=== PATIENT | male | born 1955 | race Hispanic/Latino ===

== ENCOUNTER → 2020-02-15 | Outpatient (CLI) | payer BC | END | disposition home or self-care (01) | LOC: RAH 11:48 | PROVIDERS: ATTEND Internal Medicine | DX: Z01.818 Encounter for other preprocedural examination (principal); I70.0 Atherosclerosis of aorta ==

== ENCOUNTER 2020-04-25 10:20 | Day surgery (SDC) | payer BC ==
[2020-04-19 12:24] LABS: BASOPHILS % (AUTO) 0.8 % (0.0-5.0); EOSINOPHILS % (AUTO) 2.8 % (0.0-8.0); HEMATOCRIT 39.4 % (42-54); LYMPHOCYTES % (AUTO) 31.1 % (21.0-51.0); MEAN CORPUSCULAR HEMOGLOBIN 31.4 pg (27.0-33.0); MEAN CORPUSCULAR HGB CONC 33.5 g/dL (32.0-36.0); MEAN CORPUSCULAR VOLUME 93.6 fL (79-99); MONOCYTES % (AUTO) 11.2 % (3.0-13.0); NEUTROPHILS % (AUTO) 53.9 % (40.0-77.0); PLATELET COUNT (AUTO) 226 K/uL (130-400); RED BLOOD CELL COUNT(AUTO) 4.21 MIL/uL (4.50-6.20); RED CELL DISTRIBUTION WIDTH 12.3 % (11.0-15.5); WHITE BLOOD COUNT (AUTO) 4.7 K/uL (4.8-10.8)
[2020-04-19 12:36] LABS: CREATININE 1.1 mg/dL (0.5-1.5); POTASSIUM 4.9 mmol/L (3.5-5.1)
[2020-04-24 10:39] VITALS: BP 127/77
[~2020-04-25] VITALS: Ht 179.1 cm; Wt 106.6 kg
[2020-04-25] VITALS (17 sets, daily range): BP systolic 97–129; BP diastolic 46–74
[2020-04-25] MEDS: CEFAZOLIN SODIUM 1 GM VIAL IVP SCH ×2 (06:00→13:00)
[~2020-04-25 10:20] MED LIST: LACTATED RINGERS 1000ML 1,000 ML IV SCH; LISI2.5T2 PO; METF-444 PO; SIMV10TA97 PO; VENL25TA29 PO
[2020-04-25] MEDS ORDERED: SODIUM CHLORIDE 0.9% 1000ML 1,000 ML IV ONE (10:36)
[2020-04-25] MEDS ORDERED: ONDANSETRON HCL 4 MG/2 ML VIAL ONE (12:19)
[2020-04-25] MEDS ORDERED: LIDOCAINE PF 2% 5ML ABBOJECT ONE (12:19)
[2020-04-25] MEDS ORDERED: MIDAZOLAM HCL 1 MG/ML 2ML VIAL ONE (12:20)
[2020-04-25] MEDS ORDERED: ROCURONIUM 10MG/1ML SYR 10 MG/ML ML ONE (12:20)
[2020-04-25] MEDS ORDERED: FENTANYL CITRATE PF 50 MCG/1 ML 2ML VIAL ONE (12:20)
[2020-04-25] MEDS ORDERED: DEXAMETHASONE SOD PHOSPHATE 10MG/ML 1ML VIAL ONE (12:20)
[2020-04-25] MEDS ORDERED: PROPOFOL 10 MG/ML 20ML VIAL IV ONE (12:20)
[2020-04-25] MEDS ORDERED: ROPIVACAINE 0.5% 5MG/ML 30ML IJ ONE (12:24)
[2020-04-25] MEDS ORDERED: EPHEDRINE SULFATE 50 MG/ML AMPULE ONE (12:41)
[2020-04-25] MEDS ORDERED: GLYCOPYRROLATE 1 MG/5 ML SYRINGE ONE (12:45)
--- NOTE | 2020-04-25 15:20 | NUR ---
patient brought to day patient via stretcher by SOUMYA rodriguez. patient AAOX3, RESPIRATIONS UNLABORED, VITAL SIGNS STABLE. DENIES ANY PAIN AT THIS TIME. DRESSING TO RIGHT SHOULDER IS DRY/INTACT. RIGHT ARM IN SLING. RIGHT HAND NUMB DUE TO BLOCK GIVEN IN OR. VITAL SIGNS STABLE AT THIS TIME.
--- NOTE | 2020-04-25 15:47 | NUR ---
discharge instructions provided to patient's spouse (talya jain) via telephone. follow up appointment provided and handout provided on incision care and dr lombardi post op instructions. all questions/concerns addressed,.
--- NOTE | 2020-04-25 16:00 | NUR ---
PATIENT DISCHARGED FROM FACILITY VIA WHEELCHAIR BY NURSE. PATIENT ASSISTED INTO PRIVATE VEHICLE DRIVEN BY SPOUSE.
== END 2020-04-25 16:00 | disposition home or self-care (01) ==
LOC: DAH 10:20
PROVIDERS: ATTEND Orthopaedic Surgery
DX: M75.121 Complete rotator cuff tear or rupture of right shoulder, not specified as traumatic (principal); M19.011 Primary osteoarthritis, right shoulder; E11.9 Type 2 diabetes mellitus without complications; E78.00 Pure hypercholesterolemia, unspecified; I10 Essential (primary) hypertension; Z79.899 Other long term (current) drug therapy; Z20.828 Contact with and (suspected) exposure to other viral communicable diseases
CPT/HCPCS: 23120; 23412; 36415; 80048; 82948 ×2; 85025; 93005; A4215; A4221; A4222; A4223; A4452; A4649 ×4; A4663; A4930; A5120; A6260; C1713 ×2; C9803; J0690; J1100; J2001; J2250; J2405; J2704; J2795; J3010; J3490 ×2; J7030 ×2; U0003